=== PATIENT | female | born 1995 | race African-American/Black ===

== ENCOUNTER → 2025-04-07 | Outpatient (REF) | payer OTHER ==
[2025-04-07 13:56] LABS: Trichomonas vaginalis (AMP) NOT DETECTED (NEGATIVE)
[2025-04-07 14:19] LABS: GC DNA AMPLIFICATION NEGATIVE (NEGATIVE)
== END ==
LOC: M LAB REF 12:06
PROVIDERS: ATTEND Nurse Practitioner Family
DX: R30.0 Dysuria (principal); B37.31 Acute candidiasis of vulva and vagina; Z11.3 Encounter for screening for infections with a predominantly sexual mode of transmission

== ENCOUNTER 2025-07-05 19:47 | Emergency (ER) | payer OTHER ==
[~2025-07-05] VITALS: Ht 162.6 cm; Wt 150.9 kg
[2025-07-05] MEDS: METHOCARBAMOL 1,000 MG/10 ML VIAL IV ONE (21:04)
[2025-07-05] MEDS: KETOROLAC 30 MG/ML 1 ML VIAL IV ONE (21:04)
[2025-07-05] MEDS ORDERED: METH-1164 PO (21:56)
[2025-07-05] MEDS ORDERED: LIDO1ADH93 TOP (22:04)
[2025-07-05 22:11] VITALS: BP 105/56; TEMP 98; O2SAT 97
[2025-07-05] MEDS: LIDOCAINE 5% PATCH TD ONE (22:13)
[2025-07-05] MEDS: ACETAMINOPHEN 500 MG TAB PO ONE (23:44)
== END 2025-07-05 23:54 | disposition home or self-care (01) ==
LOC: M ED 19:47
DX: M62.830 Muscle spasm of back (principal); I48.91 Unspecified atrial fibrillation; I25.119 Atherosclerotic heart disease of native coronary artery with unspecified angina pectoris; Z79.899 Other long term (current) drug therapy
CPT/HCPCS: 96374; 99284; J1100; J1885; J2800